=== PATIENT | female | born 1980 | race Caucasian/White ===

== ENCOUNTER 2019-05-19 02:01 | Inpatient (IN) | payer MEDICAID ==
[~2019-05-19] VITALS: Ht 157.5 cm; Wt 90.0 kg
[2019-05-19] MEDS ORDERED: ASPirin 81 mg TAB PO ONE (02:30)
[2019-05-19 02:58] LABS: Basophils # (auto) 0 uL; Basophils % (auto) 0.7 % (0.0-2.0); Eosinophils # (auto) 0.2 uL; Hematocrit 40.2 % (36.0-46.0); Hemoglobin 13.8 g/dL (12.2-16.2); Lymphocytes # (auto) 2.7 uL; Lymphocytes % (auto) 39.1 % (10.0-50.0); Mean Corpuscular Hemoglobin 32.5 pg (28.0-32.0); Mean Corpuscular Hgb Conc. 34.2 g/dL (32.0-36.0); Mean Corpuscular Volume 94.9 fL (80.0-100.0); Monocytes # (auto) 0.4 uL; Monocytes % (auto) 5.2 % (0.0-12.0); Neutrophils # (auto) 3.6 uL; Nucleated Red Blood Cells % 0.1 %; Platelet Count (auto) 239 10^3/uL (140-450); Red Blood Cells 4.24 10^6/uL (4.0-5.20); Red Cell Distribution Width 12.6 % (11.8-14.3)
[2019-05-19 03:06] LABS: INR 0.96 (0.9-1.15); Partial Thromboplastin Time 30.1 sec (23.64-32.05)
[2019-05-19 03:11] LABS: Albumin 3.4 g/dL (3.4-5.0); Anion Gap 7 (5-15); BUN/Creatinine Ratio 15.4; Blood Urea Nitrogen 10 mg/dL (7-18); Calcium 8.5 mg/dL (8.5-10.1); Carbon Dioxide 22 mmol/L (21-32); Chloride 109 mmol/L (98-107); GFR African American 129 mL/min; GFR Non-African American 107 mL/min; Glucose 97 mg/dL (74-106); Potassium 3.6 mmol/L (3.5-5.1); Sodium 138 mmol/L (136-145)
[2019-05-19 03:13] LABS: Urine Bacteria FEW /hpf (None Seen); Urine Blood Negative /uL (Negative); Urine Mucus FEW (None Seen); Urine Specific Gravity 1.025 (1.001-1.035); Urine WBC 6 /hpf (0 - 5)
[2019-05-19 03:20] LABS: Alanine Aminotransferase 29 U/L (13-56); Alkaline Phosphatase 63 U/L (45-117); Aspartate Aminotransferase 25 U/L (15-37); Bilirubin, Total 0.3 mg/dL (0.2-1.0); Total Protein 7.3 g/dL (6.4-8.2)
[2019-05-19] MEDS ORDERED: IOHEXOL 350 MG/ML 100ML IJ ONE (04:12)
[2019-05-19] MEDS ORDERED: NALBUPHINE HCL 10 MG/1ml INJECTION IV ONE ×2 (04:45→23:30)
[2019-05-19] MEDS ORDERED: ONDANSETRON HCL 4 MG/2 ML VIAL IV ONE (04:45)
[2019-05-19] MEDS ORDERED: SODIUM CHLORIDE 0.9% 1,000 ML IV ONE (04:45)
[2019-05-19] MEDS ORDERED: KETOROLAC TROMETH 30 MG/ML 1ML VIAL IV ONE ×2 (06:00→10:00)
[2019-05-19] MEDS ORDERED: cefTRIAXone 1GM/50ML D5W 50 ML IV ONE (07:00)
[2019-05-19] MEDS ORDERED: VANCOMYCIN PER PHARMACY 0 MG IV SCH (07:00)
[2019-05-19] MEDS: VANCOMYCIN 1GM/250ML 250 ML IV SCH ×2 (10:12→20:24)
[2019-05-19] MEDS ORDERED: MORPHINE SULF INJ 2 MG/ML SYRINGE 1ML IV PRN (10:30)
[2019-05-19] MEDS ORDERED: SODIUM CHLORIDE 0.9% 1,000 ML IV SCH (10:30)
[2019-05-19] MEDS: SOD CHL 0.9%/ KCL 20MEQ 1,000 ML IV SCH ×2 (11:49→20:45)
[2019-05-19 15:04] VITALS: BP 132/82
--- NOTE | 2019-05-19 15:04 | NUR ---
MS admit from ER ALAN GUAMAN admitted to [facility] after SBAR received. Patient oriented to Rosanne walters RN, unit, room, bed, and unit policies regarding patient care and visiting hours. Patient weighed by bed scale and encouraged to call if they need something. All questions and concerns addressed, patient verbalized understanding. Instructed patient on POC, fall precautions and to call for assistance as needed. Patient verbalized understanding. Fall precautions in place with bed in lowest locked position with call light within reach. Will continue to monitor q1hr & PRN.
[2019-05-19] MEDS: metroNIDAZOLE 500MG/100ML 100 ML IV SCH ×2 (15:15→21:55)
[2019-05-19 17:00] VITALS: BP 120/70
[2019-05-19] MEDS ORDERED: CYAN50TA3 PO (17:58)
[2019-05-19] MEDS: HYDROmorphone HCL 2 MG/ML VL IV PRN (18:23)
[2019-05-19] MEDS: ONDANSETRON HCL 4 MG/2 ML VIAL IV PRN (18:23)
--- NOTE | 2019-05-19 18:25 | NUR ---
PRN Pain medication administered to patient per MD order. Respirations even and unlabored, no distress noted. Fall precautions in place with call light within reach. Bed alarm turned on for safety. Visitor at bedside.
--- NOTE | 2019-05-19 19:29 | NUR ---
Care endorsed to AURY Carrasquillo.
--- NOTE | 2019-05-19 19:50 | NUR ---
RECEIVED PATIENT FROM DAY SHIFT RN. PATIENT RESTING IN BED. NO S/S OF DISTRESS NOTED. DENIED PAIN FOR NOW. REINFORCED NPO FOR NOW. POC INSTRUCTED AND ENCOURAGED PATIENT TO CALL FOR LENO SEWER IF NEEDED. BED IN LOWEST POSITION WITH SIDE RAILS UP X 2. CALL PEREZ WITHIN REACH. CONTINUE TO MONITOR FOR CHANGES Q1H AND PRN.
--- NOTE | 2019-05-19 21:55 | NUR ---
INSTRUCTED PATIENT ON SIDE EFFECTS OF ANTIBIOTICS. PATIENT VERBALIZED UNDERSTANDING. CONTINUE CARE.
--- NOTE | 2019-05-19 22:22 | NUR ---
HOSPITALIST Called/paged ZAINAB ARROYO called re:PATIENT WOULD LIKE TO HAVE TORADOL FOR PAIN INSTEAD OF DILAUDID. Waiting for call back. Continue care.
[2019-05-19 22:25] VITALS: BP 114/59
--- NOTE | 2019-05-19 22:55 | NUR ---
HOSPITALIST returned call OUTDOOR ADVERTISING LEASING AGENT CRUZ returned call, updated on patient status and reason for call, ORDERED NUBAIN 10MG IV ONCE. Continue care.
--- NOTE | 2019-05-20 02:41 | NUR ---
PATIENT SLEEPING. NO S/S OF DISTRESS NOTED. CONTINUE CARE.
[2019-05-20] MEDS: SOD CHL 0.9%/ KCL 20MEQ 1,000 ML IV SCH (02:48)
--- NOTE | 2019-05-20 05:41 | NUR ---
PATIENT WALKED TO BATHROOM AND BACK TO BED WITH STEADY GAIT. NO S/S OF DISTRESS NOTED. CONTINUE TO MONITOR.
[2019-05-20] MEDS: metroNIDAZOLE 500MG/100ML 100 ML IV SCH ×3 (05:42→21:23)
[2019-05-20 05:49] VITALS: BP 116/60
[2019-05-20 06:53] LABS: Albumin 2.2 g/dL (3.4-5.0); BUN/Creatinine Ratio 13.3; Bilirubin, Total 0.4 mg/dL (0.2-1.0); Calcium 7.3 mg/dL (8.5-10.1)
--- NOTE | 2019-05-20 08:15 | NUR ---
OPENING SHIFT NOTE: PATIENT ASLEEP IN BED. BED IN LOWEST LOCKED POSITION FLOORS FREE OF CLUTTER. RESPIRATIONS EVEN AND UNLABORED CALL LIGHT WITHIN REACH. WILL CONTINUE TO MONITOR.
[2019-05-20] MEDS: VANCOMYCIN 1GM/250ML 250 ML IV SCH (08:22)
[2019-05-20 08:35] LABS: Basophils # (auto) 0 uL; Basophils % (auto) 0.6 % (0.0-2.0); Eosinophils # (auto) 0.1 uL; Hematocrit 37.1 % (36.0-46.0); Hemoglobin 12.6 g/dL (12.2-16.2); Lymphocytes # (auto) 1.3 uL; Lymphocytes % (auto) 34.1 % (10.0-50.0); Mean Corpuscular Hemoglobin 32.7 pg (28.0-32.0); Monocytes # (auto) 0.3 uL; Neutrophils # (auto) 2.1 uL; Neutrophils % (auto) 55.3 % (37.0-80.0); Nucleated Red Blood Cells % 0.1 %; Platelet Count (auto) 201 10^3/uL (140-450); Red Blood Cells 3.86 10^6/uL (4.0-5.20); Red Cell Distribution Width 12.6 % (11.8-14.3); White Blood Cell 3.8 10^3/uL (4.4-10.8)
[2019-05-20 09:15] VITALS: BP 124/70
[2019-05-20] MEDS: cefTRIAXone 1GM/50ML D5W 50 ML IV SCH (09:59)
[2019-05-20] MEDS: HYDROmorphone HCL 2 MG/ML VL IV PRN (09:59)
[2019-05-20] MEDS: ONDANSETRON HCL 4 MG/2 ML VIAL IV PRN (10:00)
[2019-05-20] MEDS: D5W/SOD CHL 0.45%/KCL 20MEQ 1,000 ML IV SCH ×2 (12:00→22:00)
[2019-05-20 13:00] VITALS: BP 124/63
[2019-05-20] MEDS: KETOROLAC TROMETH 30 MG/ML 1ML VIAL IV PRN (15:18)
--- NOTE | 2019-05-20 15:24 | NUR ---
PATIENT REPORTED FEELING LIKE "I AM IN A FISH BOWL" AFTER DILAUDID FOR HEADACHE. THIS RN GOT AN ORDER FOR TORADOL, PATIENT TOLERATED MUCH BETTER PAIN REDUCED. AT BEDSIDE.
--- NOTE | 2019-05-20 16:50 | NUR ---
UPDATED PATIENT ON PLAN OF CARE REGARDING SURGICAL CONSULT. CONSENTS PLACED IN HARD CHART PENDING SIGNATURES ONCE MD INFORMS PATIENT ON PLAN AND PROCEDURE. PATIENT GAVE SOME OF HER JEWELRY TO , LEFT RING FINGER UNABLE TO REMOVE. WILL ENDORSE CARE TO NOC REGARDING CHECKLIST AND PREPARATION/TAPING JEWELRY.
[2019-05-20 18:10] VITALS: BP 115/86
--- NOTE | 2019-05-20 19:24 | NUR ---
CARE ENDORSED TO BENY JEFFERS.
--- NOTE | 2019-05-20 19:30 | NUR ---
RECEIVED PATIENT FROM DAY SHIFT RN. PATIENT RESTING IN BED. NO S/S OF DISTRESS NOTED. DENIED PAIN FOR NOW. REINFORCED NPO, AND PROCEDURE TOMORROW MORNING. PATIENT VERBALIZED UNDERSTANDING. POC INSTRUCTED AND ENCOURAGED PATIENT TO CALL FOR SPOT WELDER IF NEEDED. BED IN LOWEST POSITION WITH SIDE RAILS UP X 2. CALL PEREZ WITHIN REACH. CONTINUE TO MONITOR FOR CHANGES Q1H AND PRN.
--- NOTE | 2019-05-20 22:10 | NUR ---
PATIENT'S FAMILY CALLED, WHO DID NOT KNOW PASSWORD. NO INFO RELEASED. CONTINUE TO MONITOR.
[2019-05-20 22:43] VITALS: BP 123/69
--- NOTE | 2019-05-21 02:21 | NUR ---
PATIENT SLEEPING. NO S/S OF DISTRESS NOTED. CONTINUE CARE.
[2019-05-21] MEDS: metroNIDAZOLE 500MG/100ML 100 ML IV SCH ×3 (05:24→21:40)
--- NOTE | 2019-05-21 05:24 | NUR ---
CHG WIPES DONE. TOTAL LINEN CHANGED. PATIENT TOLERATED WELL. CONTINUE TO MONITOR.
[2019-05-21 05:36] VITALS: BP 124/75
[2019-05-21] MEDS: D5W/SOD CHL 0.45%/KCL 20MEQ 1,000 ML IV SCH (05:57)
--- NOTE | 2019-05-21 06:31 | NUR ---
PATIENT'S CALLED. PASSWORD VERIFIED. PATIENT'S STATED THAT THEY ARE NOT COMFORTABLE WITH MD RUFF WHO WILL DO THE SURGERY FOR THE PATIENT. TOLD IF THEY DID NOT WANT MD RUFF, PROBABLY THERE IS NO SX FOR TODAY. WILL ASK HOSPITALIST TO PUT ANOTHER SX CONSULT FOR MD CHAN. PATIENT'S VERBALIZED UNDERSTANDING. WILL PASS IT TO DAY SHIFT NURSE AND MAKE CHARGE NURSE AWARE. CONTINUE TO MONITOR.
--- NOTE | 2019-05-21 06:57 | NUR ---
OR CALLED TO INFORM PATIENT REFUSED TO HAVE SX WITH FISCHL.
--- NOTE | 2019-05-21 06:58 | NUR ---
MD RUFF PAGED FOR PATIENT REFUSED TO HAVE SURGERY WITH HIM. WAITING FOR CALL BACK. CONTINUE TO MONITOR.
--- NOTE | 2019-05-21 07:40 | NUR ---
RECEIVED REPORT AND ASSUMED CARE OF PT. A/OX4. DENIED S/S ACUTE DISTRESS. UPDATE PT WITH POC. PT REFUSING SX WITH DR RUFF. WILL INFORM THE DOCTOR.BED AT LOWEST POSITION. CALL LIGHT AND BELONGINGS WITHIN REACH. WILL CONT TO MONITOR.
[2019-05-21 08:00] VITALS: BP 116/72
[2019-05-21] MEDS: ONDANSETRON HCL 4 MG/2 ML VIAL IV PRN (10:05)
[2019-05-21] MEDS: cefTRIAXone 1GM/50ML D5W 50 ML IV SCH (10:06)
[2019-05-21] MEDS: KETOROLAC TROMETH 30 MG/ML 1ML VIAL IV PRN ×2 (10:06→22:30)
[2019-05-21 12:00] VITALS: BP 128/78
--- NOTE | 2019-05-21 15:36 | NUR ---
NUTRITION ASSESSMENT NOTES Please refer to link notes of nutrition screen form filed under the intervention section of the plan of care for further details. Est. Needs: 1250 kcal to 1700 kcal (15-20 kcal/kgBW), 50 gms to 65 gms pro (1.0-1.3 gms/kgIBW: 50 kg). Will continue to monitor pertinent labs and reassess nutrient need prn Thank you. Addendum: 05/21/19 at [address] Amended: Links added.
[2019-05-21] MEDS ORDERED: SUCCINYLCHOLINE CHLORIDE 20 MG/ML 10ML VIAL IV ONE (16:21)
[2019-05-21] MEDS ORDERED: LIDOCAINE 1% (LOCAL ANESTH.) PF 5ml SDV ONE (16:21)
[2019-05-21] MEDS ORDERED: BUPIVACAINE 0.25% INJ 50ML VIAL ONE (16:23)
[2019-05-21] MEDS ORDERED: ONDANSETRON HCL 4 MG/2 ML VIAL IV PRN (16:30)
[2019-05-21] MEDS ORDERED: HYDROmorphone HCL 2 MG/ML VL IV PRN (16:30)
[2019-05-21] MEDS ORDERED: NALOXONE HCL 0.4 MG/ML VIAL IV PRN (16:30)
[2019-05-21] MEDS ORDERED: MIDAZOLAM HCL 1MG/1ML-2 ML VIAL ONE (16:42)
[2019-05-21] MEDS ORDERED: METOCLOPRAMIDE HCL 5MG/ml INJ 2ml VIAL ONE (16:43)
[2019-05-21] MEDS ORDERED: PROPOFOL 10 MG/ML 20 ML IV ONE (16:45)
[2019-05-21] MEDS ORDERED: fentaNYL CITRATE 100 MCG/2 ML VL ONE (16:57)
--- NOTE | 2019-05-21 17:00 | NUR ---
PT WAS OUT FOR PROCEDURE DURING 1700 VITALS
[2019-05-21] MEDS ORDERED: ceFAZolin 1GM VL ONE (17:11)
[2019-05-21] MEDS ORDERED: SODIUM CHLORIDE LOCK 10 ML ONE (17:12)
[2019-05-21] MEDS ORDERED: KETOROLAC TROMETH 30 MG/ML 1ML VIAL ONE (17:39)
[2019-05-21] MEDS ORDERED: GLYCOPYRROLATE 0.2 MG/ML 1ML VIAL ONE (17:40)
[2019-05-21] MEDS ORDERED: NEOSTIGMINE 1 MG/ML INJ (10mg/10ML VIAL) ONE (17:40)
[2019-05-21] MEDS: HYDROmorphone HCL 2 MG/ML VL IV PRN ×2 (18:14→18:27)
--- NOTE | 2019-05-21 19:20 | NUR ---
PT BACK ON THE UNIT FROM OR. A/OX4 BUT DROWSY. DENIED S/S ACUTE DISTRESS. 4 SMALL INCISIONS ON ABD NOTED AND OPEN TO AIR. NO S/S BLEED NOTED. FAMILY AT BEDSIDE. ENDORSED CARE TO NIGHT NURSE.
--- NOTE | 2019-05-21 19:30 | NUR ---
RECEIVED PATIENT FROM DAY SHIFT RN. PATIENT RESTING IN BED. NO S/S OF DISTRESS NOTED. C/O PAIN ON INCISION SITE WHEN MOVING. WILL COME BACK FOR PAIN MEDICATION LATER. INCISIONS OPEN TO AIR, NO S/S OF BLEEDING AND INFECTION NOTED. POC INSTRUCTED AND INSTRUCTED PATIENT TO CALL FOR JAVA PROGRAMMER IF NEEDED. BED IN LOWEST POSITION WITH SIDE RAILS UP X 2. CALL PEREZ WITHIN REACH. ALARM ON. CONTINUE TO MONITOR FOR CHANGES Q1H AND PRN.
--- NOTE | 2019-05-21 20:06 | NUR ---
ABDOMINAL BINDER APPLIED. INSTRUCTED PATIENT ON IS. PATIENT COULD DEMONSTRATE BACK. CONTINUE TO MONITOR.
[2019-05-21 22:00] VITALS: BP 99/48
--- NOTE | 2019-05-21 22:55 | NUR ---
MEDICATED PATIENT FOR PAIN @ 01/24. THEN ASSISTED PATIENT TO BATHROOM AND BACK TO BED. TOTAL BED LINEN CHANGED AT THIS TIME. PATIENT TOLERATED WELL. NO S/S OF DISTRESS NOTED. CONTINUE TO MONITOR.
--- NOTE | 2019-05-21 23:30 | NUR ---
PATIENT SLEEPING. NO S/S OF DISTRESS AND PAIN NOTED. CONTINUE CARE
[2019-05-22] MEDS: D5W/SOD CHL 0.45%/KCL 20MEQ 1,000 ML IV SCH (01:40)
--- NOTE | 2019-05-22 02:39 | NUR ---
PATIENT SLEEPING. NO S/S OF DISTRESS AND PAIN NOTED. CONTINUE CARE
[2019-05-22 04:49] VITALS: BP 104/60
[2019-05-22] MEDS: metroNIDAZOLE 500MG/100ML 100 ML IV SCH ×3 (05:43→22:43)
--- NOTE | 2019-05-22 07:45 | NUR ---
Opening Shift Note Assumed care of patient, awake and alert. No S/S of distress/SOB or pain. Instructed on POC and to call for assist PRN, will continue to monitor for changes Q1hr and PRN. Bed locked in lowest position with two side rails up and call light in reach.
[2019-05-22 08:00] VITALS: BP 104/60
[2019-05-22 09:00] VITALS: BP 104/60
[2019-05-22] MEDS: KETOROLAC TROMETH 30 MG/ML 1ML VIAL IV PRN ×3 (09:02→22:42)
[2019-05-22] MEDS: cefTRIAXone 1GM/50ML D5W 50 ML IV SCH (09:03)
[2019-05-22] MEDS ORDERED: ACETAMINOPHEN 325 MG TAB PO PRN (12:00)
[2019-05-22 12:30] VITALS: BP 111/64
[2019-05-22 16:58] VITALS: BP 123/64
--- NOTE | 2019-05-22 19:40 | NUR ---
Opening Shift Note Assumed care of patient, awake and alert. No S/S of distress/SOB or pain. Bed locked in lowest position with two side rails up and call light in reach. Incisions to abdomen noted to all be clean, dry, and intact with abdominal binder in place. Instructed on POC and to call for assist PRN, will continue to monitor for changes Q1hr and PRN.
[2019-05-22 21:48] VITALS: BP 116/68
--- NOTE | 2019-05-22 23:40 | NUR ---
Patient reports flatus, but no bowel movement. Patient states that it is not abnormal for her "to go about a week" before she has a bowel movement. Patient aware to inform staff if she has a bowel movement. Will continue care.
[2019-05-23 05:06] VITALS: BP 124/67
[2019-05-23] MEDS: metroNIDAZOLE 500MG/100ML 100 ML IV SCH (06:49)
--- NOTE | 2019-05-23 06:55 | NUR ---
IV removal IV to left forearm DC'd with clean sterile technique, catheter fully intact. Pressure dressing applied to site. Patient tolerated well. IV to left hand remains patent and intact.
--- NOTE | 2019-05-23 07:40 | NUR ---
Closing Note Patient lying in bed, awake and alert. No s/s of distress. Care endorsed to dayshift RN.
[2019-05-23] MEDS: cefTRIAXone 1GM/50ML D5W 50 ML IV SCH (08:37)
[2019-05-23 09:00] VITALS: BP 116/70
[2019-05-23] MEDS ORDERED: PANTOPRAZOLE 40 MG TAB PO SCH (10:00)
--- NOTE | 2019-05-23 14:45 | NUR ---
Discharge instructions given as ordered. Encourage to follow up with PMD as instructed. All questions and concerns addressed. Patient verbalized understanding. Medication reconciliation form completed and copy given to patient. IV removed with catheter intact, pressure dressing applied. Abd surgical puncture wounds open to air, no redness, drainage or swelling. Abd binder in place. Patient taken to vehicle via wheelchair with all personal belongings, accompanied by staff and family member. No distress noted at time of departure.
== END 2019-05-23 14:45 | disposition home or self-care (01) | DRG 418 ==
LOC: ER 02:06 → OVERFLOW 02:07 → CENTRAL 15:04
PROVIDERS: ADMIT Nurse Practitioner Acute Care; ATTEND Internal Medicine
PROC: 0FT44ZZ Resection of Gallbladder, Percutaneous Endoscopic Approach (ICD-10-PCS; principal; 2019-05-21 16:41)
DX: K80.00 Calculus of gallbladder with acute cholecystitis without obstruction (principal); N39.0 Urinary tract infection, site not specified; J45.909 Unspecified asthma, uncomplicated; E66.01 Morbid (severe) obesity due to excess calories; R01.1 Cardiac murmur, unspecified; F41.9 Anxiety disorder, unspecified; Z68.36 Body mass index [BMI] 36.0-36.9, adult; Z88.1 Allergy status to other antibiotic agents; Z88.5 Allergy status to narcotic agent; Z88.2 Allergy status to sulfonamides; Z88.8 Allergy status to other drugs, medicaments and biological substances
CPT/HCPCS: 36415; 71045; 71275; 76705; 80053; 81001; 81025; 82247; 83880; 84484; 85025; 85379; 85610; 85730; 86850; 86900; 86901; 87040; 93005; 93306; 96365; 96375; G0378; J0330; J0690; J0696; J1885; J2250; J2405; J2704; J3490